=== PATIENT | male | born 1995 | race Caucasian/White ===

== ENCOUNTER 2017-07-21 23:09 | Emergency (ER) | payer OTHER ==
[2017-07-22 01:09] LABS: Absolute Lymphocytes (CBC) 3.2 K/uL (0.7-4.9); Absolute Monocytes 0.9 K/uL (0.1-1.3); Absolute Neutrophil 4.1 K/uL (1.8-8.0); Basophils % 0.8 % (0-1.3); Eosinophils % 1.6 % (0-4.4); Hematocrit 41.1 % (39.6-49.0); Lymphocytes % 38.3 % (15.3-44.8); MCH 31.1 pg (27.0-35.0); MPV 8.1 fL (7.6-11.3); Monocytes % 10.3 % (3.3-12.3); RBC Red Blood Cell Count 4.61 M/uL (4.33-5.43)
[2017-07-22 01:19] LABS: Bicarbonate 27 mEq/L (21-31); Glucose Level 98 mg/dL (65-120); Potassium 3.9 mEq/L (3.6-5.0); Sodium Level 139 mEq/L (135-145)
[2017-07-22 01:22] LABS: BUN Blood Urea Nitrogen 20 mg/dL (6-20); Creatine Phosphokinase 66 IU/L (22-269)
[2017-07-22] MEDS ORDERED: AZITHROMYCIN 500 MG/250 ML BAG ONE (02:49)
[2017-07-22] MEDS ORDERED: ONDANSETRON 4 MG/2 ML VIAL ONE (03:25)
--- NOTE | 2017-07-22 03:25 | ER ---
Nurse's Notes [facility] Name: Marcelo Delgadillo Age: 21 yrs Sex: Male : 1995 Arrival Date: 07/21/2017 Time: 23:14 Bed 17 Private MD: Diagnosis: Hemoptysis Presentation: 07/21 23:34 Presenting complaint: Patient states: "A week ago I had a cough and sore throat. It got lk1 better about 3 days ago, but today I started spitting up blood and having pain when I take a deep breath.". Transition of care: patient was not received from another setting of care. Onset of symptoms was July 15, 2017. Risk Assessment: Do you want to hurt yourself or someone else? Patient reports no desire to harm self or others. Initial Sepsis Screen: Does the patient meet any 2 criteria? No. Patient's initial sepsis screen is negative. Does the patient have a suspected source of infection? No. Patient's initial sepsis screen is negative. Care prior to arrival: None. 23:34 Method Of Arrival: Ambulatory lk1 23:34 Acuity: CELINE 3 lk1 Triage Assessment: 23:36 General: Appears in no apparent distress. Behavior is calm, cooperative, appropriate lk1 for age. Pain: Complains of pain in chest Pain currently is 5 out of 10 on a pain scale. EENT: No signs and/or symptoms were reported regarding the EENT system. Neuro: Level of Consciousness is awake, alert, obeys commands, Oriented to person, place, time, situation. Cardiovascular: Heart tones S1 S2 present Capillary refill is brisk Patient's skin is warm and dry. Cardiovascular: Reports chest pain. Respiratory: Airway is patent Respiratory effort is even, unlabored, Respiratory pattern is regular, symmetrical, Breath sounds are clear bilaterally. Respiratory: Parent/caregiver reports the patient having cough that is pain with cough coughing up blood. GI: No signs and/or symptoms were reported involving the gastrointestinal system. : No signs and/or symptoms were reported regarding the genitourinary system. Derm: No signs and/or symptoms reported regarding the dermatologic system. Musculoskeletal: No signs and/or symptoms reported regarding the musculoskeletal system. Historical: - Allergies: 23:36 No Known Allergies; lk1 - PMHx: 23:36 None; lk1 - PSHx: 23:36 None; lk1 - Immunization history:: Adult Immunizations up to date. - Social history:: Smoking status: Patient/guardian denies using tobacco. - Ebola Screening: : Patient negative for fever greater than or equal to 101.5 degrees Fahrenheit, and additional compatible Ebola Virus Disease symptoms Patient denies exposure to infectious person Patient denies travel to an Ebola-affected area in the 21 days before illness onset No symptoms or risks identified at this time. Screenin:45 Abuse screen: Denies threats or abuse. Denies injuries from another. Nutritional lk1 screening: No deficits noted. Tuberculosis screening: No symptoms or risk factors identified. Fall Risk None identified. Assessment: 07/22 04:30 Reassessment: Patient and/or family updated on plan of care and expected duration. Pain lk1 level reassessed. Patient is alert, oriented x 3, equal unlabored respirations, skin warm/dry/pink. Patient became nauseated after starting IV meds. CARTRIDGE FILLER notified, new orders received. Patient denies pain at this time. Patient states feeling better. Patient states symptoms have improved. Vital Signs: 07/21 23:38 BP 117 / 71; Pulse 70; Resp 16; Temp 98.2(O); Pulse Ox 100% on R/A; Weight 61.23 kg lk1 (R); Height 5 ft. 6 in. (167.64 cm) (R); Pain 5/10; 07/22 01:00 BP 110 / 78; Pulse 59; Resp 16; Pulse Ox 100% on R/A; lk1 02:18 BP 116 / 72; Pulse 62; Resp 15; Pulse Ox 100% on R/A; lk1 04:35 BP 113 / 76; Pulse 58; Resp 16; Pulse Ox 100% on R/A; lk1 07/21 23:38 Body Mass Index 21.79 (61.23 kg, 167.64 cm) lk1 ED Course: 07/21 01:00 Inserted saline lock: 20 gauge in right antecubital area, using aseptic technique. lk1 Blood collected. 23:14 Patient arrived in ED. al2 23:23 Sher[facility] Pacheco [facility]C [facility]. snw 23:23 Johan Call MD is Attending Physician. snw 23:34 Ellen Cuenca RN is Primary Nurse. lk1 23:36 Triage completed. lk1 23:39 Arm band placed on right wrist. lk1 23:45 Patient has correct armband on for positive identification. Bed in low position. Call lk1 light in reach. Adult w/ patient. 07/22 00:09 Patient moved to radiology via wheelchair. kw 00:09 X-ray completed. Patient tolerated procedure well. kw 00:09 Patient moved back from radiology. kw 00:11 Chest Pa And Lat (2 Views) XRAY In Process Unspecified. EDMS 02:[address] via wheelchair. eh 02:20 CT Chest For PE Angio In Process Unspecified. EDMS 02:22 CT completed. Patient tolerated procedure well. Patient moved back from CT. 04:39 No provider procedures requiring assistance completed. IV discontinued, intact, lk1 bleeding controlled, No redness/swelling at site. Pressure dressing applied. Administered Medications: 03:05 Drug: Zithromax 500 mg Route: IVPB; Infused Over: 1 hrs; Site: right antecubital; lk1 04:30 Follow up: Response: No adverse reaction; Nausea is increased; IV Status: Completed lk1 infusion 03:25 Drug: Zofran 4 mg Route: IVP; Site: right antecubital; lk1 04:00 Follow up: Response: No adverse reaction; Nausea is decreased lk1 Outcome: 03:25 Discharge ordered by . snw 04:40 Discharged to home ambulatory, with significant other. lk1 04:40 Condition: good 04:40 Discharge instructions given to patient, significant other, Instructed on discharge instructions, follow up and referral plans. medication usage, safety practices, Demonstrated understanding of instructions, follow-up care, medications, Prescriptions given X 3. 04:40 Patient left the ED. lk1 Signatures: Dispatcher [employer] EDCO Sherri Pacheco, GREEN CHAINER-C GREEN CHAINER-Csnw [place] Kimberlee kw Kluge, Leah, RN RN lk1 Angella Taveras
--- NOTE | 2017-07-22 03:25 | EDPHYS ---
Physician Documentation [facility] Name: Marcelo Delgadillo Age: 21 yrs Sex: Male : 1995 Arrival Date: 07/21/2017 Time: 23:14 Bed 17 Private MD: ED Physician Johan Call HPI: 07/22 02:12 This 21 yrs old Male presents to ER via Ambulatory with complaints of Cough, snw SPITTING BLOOD. 02:12 The patient or guardian reports cough, described as moderate. Onset: The snw symptoms/episode began/occurred suddenly, and became persistent. Severity of symptoms: At their worst the symptoms were moderate. Associated signs and symptoms: Pertinent positives: initially pt was coughing with sore throat, pt began improving but then today started coughing up blood with pain on inspiration. The patient has not experienced similar symptoms in the past. The patient has not recently seen a physician. Pt is in the [employer], was diving in [place] last week. Last PPD in 2014. Historical: - Allergies: 07/21 23:36 No Known Allergies; lk1 - PMHx: 23:36 None; lk1 - PSHx: 23:36 None; lk1 - Immunization history:: Adult Immunizations up to date. - Social history:: Smoking status: Patient/guardian denies using tobacco. - Ebola Screening: : Patient negative for fever greater than or equal to 101.5 degrees Fahrenheit, and additional compatible Ebola Virus Disease symptoms Patient denies exposure to infectious person Patient denies travel to an Ebola-affected area in the 21 days before illness onset No symptoms or risks identified at this time. ROS: 07/22 01:21 Constitutional: Positive for cough, sore throat, started coughing up blood today. snw 02:11 Eyes: Negative for injury, pain, redness, and discharge, ENT: Negative for injury, snw pain, and discharge, Neck: Negative for injury, pain, and swelling, Cardiovascular: Negative for chest pain, palpitations, and edema, Respiratory: Negative for shortness of breath, wheezing, + cough and pleuritic chest pain, started coughing up blood today Abdomen/GI: Negative for abdominal pain, nausea, vomiting, diarrhea, and constipation, Back: Negative for injury and pain. Exam: 01:20 Constitutional: This is a well developed, well nourished patient who is awake, alert, snw and in no acute distress. Head/Face: Normocephalic, atraumatic. Eyes: Pupils equal round and reactive to light, extra-ocular motions intact. Lids and lashes normal. Conjunctiva and sclera are non-icteric and not injected. Cornea within normal limits. Periorbital areas with no swelling, redness, or edema. Neck: Trachea midline, no thyromegaly or masses palpated, and no cervical lymphadenopathy. Supple, full range of motion without nuchal rigidity, or vertebral point tenderness. No Meningismus. Chest/axilla: Normal chest wall appearance and motion. Nontender with no deformity. No lesions are appreciated. Cardiovascular: Regular rate and rhythm with a normal S1 and S2. No gallops, murmurs, or rubs. Normal PMI, no JVD. No pulse deficits. Respiratory: Lungs have equal breath sounds bilaterally, clear to auscultation and percussion. No rales, rhonchi or wheezes noted. No increased work of breathing, no retractions or nasal flaring. Abdomen/GI: Soft, non-tender, with normal bowel sounds. No distension or tympany. No guarding or rebound. No evidence of tenderness throughout. Back: No spinal tenderness. No costovertebral tenderness. Full range of motion. Skin: Warm, dry with normal turgor. Normal color with no rashes, no lesions, and no evidence of cellulitis. MS/ Extremity: Pulses equal, no cyanosis. Neurovascular intact. Full, normal range of motion. Neuro: Awake and alert, GCS 15, oriented to person, place, time, and situation. Cranial nerves II-XII grossly intact. Motor strength 5/5 in all extremities. Sensory grossly intact. Cerebellar exam normal. Normal gait. 01:20 ENT: External ear(s): are unremarkable, Ear canal(s): are normal, TM's: erythema, that is moderate, on the right, Nose: is normal, Mouth: is normal, Posterior pharynx: is normal, Voice: is normal. Vital Signs: 07/21 23:38 BP 117 / 71; Pulse 70; Resp 16; Temp 98.2(O); Pulse Ox 100% on R/A; Weight 61.23 kg lk1 (R); Height 5 ft. 6 in. (167.64 cm) (R); Pain 5/10; 07/22 01:00 BP 110 / 78; Pulse 59; Resp 16; Pulse Ox 100% on R/A; lk1 02:18 BP 116 / 72; Pulse 62; Resp 15; Pulse Ox 100% on R/A; lk1 04:35 BP 113 / 76; Pulse 58; Resp 16; Pulse Ox 100% on R/A; lk1 07/21 23:38 Body Mass Index 21.79 (61.23 kg, 167.64 cm) lk1 MDM: 00:06 Patient medically screened. snw 02:16 Data reviewed: vital signs, nurses notes. Data interpreted: Pulse oximetry: on room air snw is 100 %. Interpretation: normal. Counseling: I had a detailed discussion with the patient and/or guardian regarding: the historical points, exam findings, and any diagnostic results supporting the discharge/admit diagnosis, lab results, radiology results. Awaiting: CT scan results, awaiting results. ED course: Pt's x-ray without concern for TB lesions, will CT to r/o pneumomediastinum or PE. 07/22 00:49 Order name: CBC with Diff; Complete Time: 01:22 snw 07/22 00:49 Order name: Chem 7; Complete Time: 01:33 snw 07/21 23:50 Order name: Chest Pa And Lat (2 Views) XRAY snw 07/22 00:49 Order name: CT Chest For PE Angio snw 07/22 00:49 Order name: CPK; Complete Time: 01:33 snw 07/22 02:40 Order name: Misc. Lab Test snw Administered Medications: 03:05 Drug: Zithromax 500 mg Route: IVPB; Infused Over: 1 hrs; Site: right antecubital; lk1 04:30 Follow up: Response: No adverse reaction; Nausea is increased; IV Status: Completed lk1 infusion 03:25 Drug: Zofran 4 mg Route: IVP; Site: right antecubital; lk1 04:00 Follow up: Response: No adverse reaction; Nausea is decreased lk1 Disposition: 06:40 Co-signature as Attending Physician, Johan Call MD available for consultation at ps1 all times. . Disposition: 07/22/17 03:25 Discharged to Home. Impression: Hemoptysis. - Condition is Stable. - Discharge Instructions: Hemoptysis, Cough, Adult. - Prescriptions for Tessalon Perles 100 mg Oral Capsule - take 1 capsule by ORAL route every 8 hours As needed; 15 capsule. Zithromax 500 mg Oral Tablet - take 1 tablet by ORAL route once daily for 5 days; 5 tablet. Zofran 4 mg Oral Tablet - take 1 tablet by ORAL route every 12 hours As needed; 6 tablet. - Work release form, Medication Reconciliation Form, Thank You Letter, Antibiotic Education, Prescription Opioid Use form. - Follow up: Private Physician; When: 2 - 3 days; Reason: Recheck today's complaints, Continuance of care, Re-evaluation by your physician. Follow up: Emergency Department; When: As needed; Reason: Worsening of condition. Signatures: Dispatcher [employer] EDMS Sherri Pacheco, [employer] GENER[employer] AGENT-Csnw Ellen Cuenca RN RN lk1 Johan Call MD MD ps1 Corrections: (The following items were deleted from the chart) 04:40 03:25 07/22/2017 03:25 Discharged to Home. Impression: Hemoptysis. Condition is Stable. lk1 Discharge Instructions: Hemoptysis, Cough, Adult. Prescriptions for Tessalon Perles 100 mg Oral Capsule - take 1 capsule by ORAL route every 8 hours As needed; 15 capsule, Zithromax 500 mg Oral Tablet - take 1 tablet by ORAL route once daily for 5 days; 5 tablet. and Forms are Work release form, Medication Reconciliation Form, Thank You Letter, Antibiotic Education, Prescription Opioid Use. Follow up: Private Physician; When: 2 - 3 days; Reason: Recheck today's complaints, Continuance of care, Re-evaluation by your physician. Follow up: Emergency Department; When: As needed; Reason: Worsening of condition. snw
--- NOTE | 2017-07-22 08:12 | RAD REPORT ---
EXAM DESCRIPTION: CT - Chest For Pe Angio - 07/22/2017 7:36 am CLINICAL HISTORY: Hemoptysis since yesterday COMPARISON: None. TECHNIQUE: Dynamically enhanced axial 3 mm thick images of the chest were obtained during administra tion of <100> mL Isovue 370 IV contrast. Coronal and oblique reconstruction images were generated and reviewed. Exam utilizes a protocol for optimal evaluation of pulmonary arterial tree.A preliminary r eport was generated by virtual radiologic and reviewed prior to this dictation All CT scans are performed using dose optimization technique as appropriate and may include automated exposure control or mA/KV adjustment according to patient size. FINDINGS: A pulmonary embolus is not seen. A thoracic aortic aneurysm is not noted. A pleural effusion is not seen. A pericardial effusion is not seen. A lung consolidation is not present. IMPRESSION: Negative for a pulmonary embolism.
--- NOTE | 2017-07-22 08:13 | RAD REPORT ---
EXAM DESCRIPTION: Taz Oneil (2 Views)07/22/2017 12:11 am CLINICAL HISTORY: Cough COMPARISON: None FINDINGS: The lungs appear clear of acute infiltrate. The heart is normal size IMPRESSION: No acute abnormalities displayed
== END 2017-07-22 04:40 | disposition home or self-care (01) ==
LOC: ER 23:09
DX: R04.2 Hemoptysis (principal)
CPT/HCPCS: 36415; 71046; 71275; 80048; 82550; 85025; 86480; 96365; 96375; 99284; J0456; J2405; Q9967